=== PATIENT | male | born 2000 ===

== ENCOUNTER 2022-01-31 13:50 | Emergency (ER) | payer OTHER ==
[2022-01-31 14:32] LABS: BASOPHIL 0.9 % (0-2); EOSINOPHIL 2.1 % (0-5); LYMPHOCYTE 20.1 % (15-48); MCH 30.8 pg (25.0-31.0); MCHC 34.9 g/dL (32.0-36.0); MCV 88.3 fL (78.0-100.0); MONOCYTE 9.1 % (0-12); MPV 10.5 fL (6.0-9.5); NEUTROPHIL 67.3 % (41-80); NRBC 0; PLT 221 K/uL (150-400); RBC 4.87 M/uL (4.70-6.00); RDW 11.5 % (11.5-14.0); WBC 5.7 K/uL (4.0-10.5)
[2022-01-31 14:59] LABS: LACTIC ACID 5.3 mmol/L (0.4-1.9)
[2022-01-31 15:12] LABS: BILIRUBIN - TOTAL 0.5 mg/dL (0.2-1.0); BUN/CREAT RATIO (CALC) 13.8 RATIO; CREATININE 0.8 mg/dL (0.67-1.17); GLOBULIN (CALCULATION) 3.3 g/dL; POTASSIUM 3.7 mmol/L (3.5-5.1); TOTAL PROTEIN 7.3 g/dL (6.4-8.2)
[2022-01-31 15:53] LABS: AMPHETAMINES NEGATIVE (NEGATIVE); BARBITURATES NEGATIVE (NEGATIVE); ECSTASY (MDMA) NEGATIVE (NEGATIVE); MARIJUANA (THC) NEGATIVE (NEGATIVE); METHADONE NEGATIVE (NEGATIVE); OPIATES NEGATIVE (NEGATIVE); OXYCODONE NEGATIVE (NEGATIVE)
[2022-01-31 16:12] LABS: CLARITY CLEAR (CLEAR); COLOR YELLOW (YELLOW)
[2022-01-31 16:13] LABS: BILIRUBIN NEGATIVE (NEGATIVE); BLOOD NEGATIVE Ery/uL (NEGATIVE); GLUCOSE (U) NORMAL (NORMAL); LEUKOCYTES NEGATIVE Leu/uL (NEGATIVE); NITRITE NEGATIVE (NEGATIVE); PROTEIN NEGATIVE (NEGATIVE); pH 6.5 (5.0-9.0)
[2022-01-31] MEDS ORDERED: KEPPRA250 MG PO (21:54)
== END 2022-01-31 22:25 | disposition home or self-care (01) ==
LOC: FER 13:50
PROVIDERS: Emergency Medicine
DX: R56.9 Unspecified convulsions (principal); F17.200 Nicotine dependence, unspecified, uncomplicated
CPT/HCPCS: 36415; 70450; 71045; 71275; 80053; 80305; 81003; 83605; 84145; 84484; 85025; 87040; 93005; 93971; J1953; J7030; Q9967